=== PATIENT | female | born 2005 | race Hispanic/Latino ===

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

== ENCOUNTER 2023-07-27 16:02 | Emergency (ER) | payer OTHER, SELFPAY ==
--- NOTE | ~2023-07-27 | XR_ITS ---
EXAMINATION: XR chest 2V 07/27/2023 16:52 INDICATION: Active cough for 2-3 weeks PROCEDURE: 2 view chest COMPARISON: No prior studies for comparison. FINDINGS: The lungs are clear. The cardiomediastinal silhouette is within normal limits. There are no pleural effusions. There is no pneumothorax suspected. IMPRESSION: 1: NO ACUTE CARDIOPULMONARY DISEASE. Reviewed, dictated and finalized at location A.
[2023-07-27 16:14] VITALS: BP 110/73; PULSE 73; RESP 16; O2SAT 99
[2023-07-27 16:15] VITALS: O2SAT 99
--- NOTE | 2023-07-27 16:41 | ED.URI ---
HPI - URI/Sore Throat General Chief Complaint: Upper Respiratory Infection Stated Complaint: cough,throwing up Time Seen by Provider: 07/27/23 16:34 Source: patient and RN notes reviewed Mode of arrival: ambulatory Limitations: no limitations History of Present Illness HPI Narrative: Patient presents today complaining of a 2 week history of productive cough with 1 week history of post-tussive vomiting. Patient saw a medical provider at her [employer] 4 days ago and was diagnosed with bronchitis. She was placed on Tessalon Perles, prednisone, and an inhaler. States these medications have not been helping. She does report her cough has gone from constant to sporadic, but it is still severe during these coughing episodes. Denies shortness of breath. Denies history of asthma. She is a nonsmoker. She has not tried any [id number] medication for symptoms prior to arrival. She also reports some postnasal drainage and nasal congestion. Related Data Home Medications Medication Instructions Recorded Confirmed albuterol sulfate 90 mcg/actuation 2 puff inhalation Q4H PRN Wheezing 07/27/23 07/27/23 aerosol inhaler benzonatate 100 mg capsule 100 mg PO TID PRN Cough 07/27/23 07/27/23 escitalopram oxalate 20 mg tablet 20 mg PO DAILY 07/27/23 07/27/23 norethindrone 1 mg-ethinyl 1 tablet PO DAILY 07/27/23 07/27/23 estradiol 20 mcg (21)-iron 75 mg (7) tablet ([place] 10/13 (28)) prednisone 20 mg tablet 20 mg PO DAILY 07/27/23 07/27/23 Allergies Allergy/AdvReac Type Severity Reaction Status Date / Time No Known Allergies Allergy Verified 07/27/23 16:20 Review of Systems Review of Systems: CONSTITUTIONAL: Denies body aches, fever, chills, or sweats. EYES: Denies visual changes, redness, or discharge. ENT: Denies rhinorrhea, sore throat, or otalgia.+ congestion, postnasal drip CARDIOVASCULAR: Denies chest pain, palpitations, or edema. RESPIRATORY: Denies dyspnea.+ cough GASTROINTESTINAL: Denies abdominal pain, nausea, or diarrhea.+ post-tussive vomiting GENITOURINARY: Denies dysuria or hematuria. SKIN: Denies rash, itching, or wounds. MUSCULOSKELETAL: Denies back pain, joint pain, or myalgia. NEUROLOGIC: Denies headache, numbness, tingling, or weakness. PSYCH: Denies depression or anxiety. Exam Narrative: GENERAL: Well-appearing, well-nourished, and in no acute distress. HEAD: Normocephalic, atraumatic. EYES: EOMI. No redness or drainage. Conjunctivae normal. ENT: Mucous membranes pink and moist. Nares clear. No rhinorrhea. TMs normal bilaterally. Throat erythematous posteriorly with clear postnasal drainage. No edema or exudate. uvula midline. NECK: Normal AROM. Supple. No lymphadenopathy. CHEST: No respiratory distress. Clear to auscultation. HEART: Regular rate and rhythm. No murmur appreciated. Normal peripheral pulses. EXTREMITIES: Normal range of motion. No edema. SKIN: Warm, dry, no rash. Capillary refill normal. Normal skin turgor. NEURO: No focal deficits. Alert and oriented x3. Gait steady. PSYCH: Normal affect. No signs of depression or anxiety. Course Course Level of Care: Express Care Visit Vital Signs Vital signs: Vital Signs Pulse Rate 73 07/27/23 16:14 Respiratory Rate 16 07/27/23 16:14 Blood Pressure 110/73 07/27/23 16:14 Pulse Oximetry 99 07/27/23 16:14 Oxygen Delivery Room Air 07/27/23 16:14 Pulse Rate 73 07/27/23 16:14 Respiratory Rate 16 07/27/23 16:14 Blood Pressure 110/73 07/27/23 16:14 Pulse Oximetry 99 07/27/23 16:15 Oxygen Delivery Room Air 07/27/23 16:15 Reviewed MDM - URI/Sore Throat MDM Narrative Medical decision making narrative: Chest x-ray negative. As I am giving patient her results, she entered into a coughing episode and vomited 3 times. Will prescribe promethazine/guafencine cough medicine and azithromycin to see if this may be helpful with her symptoms. Patient agrees with plan. Anticipatory guidance given.
== END 2023-07-27 17:16 | disposition home or self-care (01) ==
PROVIDERS: Emergency Provider Nurse Practitioner; PCP Registered Nurse
DX: J40 Bronchitis, not specified as acute or chronic (principal)
CPT/HCPCS: 71046; 99213; G0463